=== PATIENT | male | born 1980 | race Caucasian/White ===

== ENCOUNTER 2022-04-20 14:57 | Emergency (ER) | payer BC, SELFPAY ==
[2022-04-20 15:30] VITALS: BP 117/80; PULSE 76; RESP 20; TEMP 37; O2SAT 97
--- NOTE | 2022-04-20 16:48 | ED.GENADULT ---
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 He was at a trap shoot yesterday (he was not shooting; his son was). He developed back pain in the left lower aspect of his back, similar to an episode that he had 10 months ago. He took ibuprofen and [id number] back remedies but this was not successful in relieving his discomfort. The left lower back pain is mild and he feels mostly it is the muscles that are tense. He does have some occasional tingling in the left leg up to the knee region but this is not currently present and is only infrequent. No falls or lifting anything heavy or sudden turns or twists. No neck pain or upper back pain. No urinary or GI symptoms. No respiratory symptoms. Related Data Allergies Allergy/AdvReac Type Severity Reaction Status Date / Time Sulfa (Sulfonamide Allergy Hives Verified 04/20/22 16:58 Antibiotics) Review of Systems Review of Systems: All systems reviewed & are unremarkable except as noted in HPI and below Constitutional: Constitutional: Reports no additional constitutional complaints, Denies anorexia, Denies body ache(s), Denies chills, Denies excessive sweating, Denies fatigue, Denies fever(s), Denies frequent falls, Denies headache(s), Denies malaise and Denies poor appetite Eyes: Eyes: Reports no additional eye complaints, Denies blurry vision, Denies change in vision, Denies irritation, Denies itchy eyes and Denies photophobia ENT: Reports system reviewed and no additional complaints, except as documented, Reports Normal hearing present, Denies change in voice, Denies dysphagia, Denies vertigo, Denies dizziness, Denies ear discharge, Denies headache(s), Denies hearing loss, Denies hoarseness, Denies nasal congestion, Denies neck pain, Denies sinus pressure, Denies sore throat and Denies throat swelling Cardiovascular: Cardiovascular: Reports no additional cardiovascular complaints, Denies chest pain, Denies syncope, Denies rapid heart rate, Denies irregular heart rhythm, Denies leg edema, Denies dyspnea and Denies slow heart rate Respiratory: Respiratory: Reports no additional respiratory complaints, Denies cough, Denies dyspnea, Denies stridor and Denies wheezing Gastrointestinal: Gastrointestinal: Reports no additional gastrointestinal complaints, Denies abdominal pain, Denies melena, Denies hematochezia, Denies dysphagia, Denies diarrhea, Denies nausea and Denies vomiting Genitourinary: Genitourinary: Denies hematuria, Denies oliguria, Denies dysuria, Denies flank pain, Denies urinary frequency and Denies urinary urgency Musculoskeletal: Musculoskeletal: Reports no additional musculoskeletal complaints, Denies abnormal gait, Reports back pain, Denies myalgias, Denies arthralgias, Denies joint swelling, Denies limited range of motion, Reports muscle cramps (in the lower back, causing pain), Reports muscle weakness ( Chronic in the left side secondary to cerebral palsy in infancy), Denies neck pain and Denies numbness Integumentary/Breasts: Skin/Breast: Reports system reviewed and no additional complaints, except as docu, Denies breast pain, Denies change in pigmentation, Denies pruritus, Denies erythema and Denies wounds Neurologic: Reports system reviewed and no additional complaints, except as documented, Reports Normal hearing present, Denies Abnormal speech present, Reports abnormal gait ( from cerebral palsy), Denies confusion, Denies vertigo, Denies dizziness, Denies syncope, Denies frequent falls, Denies headache(s), Reports focal weakness ( on the left side: from cereb
[2022-04-20] MEDS: KETOROLAC (*BKC) 60 MG/2 ML VIAL IM (17:01)
[2022-04-20] MEDS: ACETAMINOPHEN/CODEINE (*CRX) 300/30 MG TABLET 1 TAB PO (17:02)
[2022-04-20] MEDS: ORPHENADRINE CITRATE 30 MG/ML 2 ML VIAL 60 MG IM (17:03)
[2022-04-20] MEDS: HYDROmorphone HCL INJ (*CRX) 2 MG/ML VIAL 1 MG IM (18:11)
[2022-04-20 18:45] VITALS: BP 120/80; PULSE 75; RESP 20; TEMP 37; O2SAT 97
== END 2022-04-20 18:50 | disposition home or self-care (01) ==
PROVIDERS: Emergency Provider Emergency Medicine
DX: M54.50 Low back pain, unspecified (principal); G81.94 Hemiplegia, unspecified affecting left nondominant side
CPT/HCPCS: 96372; 99284; A9270; J1170; J1885; J2360